=== PATIENT | male | born 1970 | race Caucasian/White ===

== ENCOUNTER 2018-09-28 12:43 | Emergency (ER) | payer BC ==
[~2018-09-28] VITALS: Ht 188 cm; Wt 90.7 kg
[2018-09-28 12:45] VITALS: BP_SYST 123
--- NOTE | 2018-09-28 12:46 | NUR ---
[facility]
--- NOTE | 2018-09-28 12:47 | NUR ---
ER Dr. Valenzuela at bedside examining patient.
--- NOTE | 2018-09-28 12:51 | NUR ---
Pt [id number] presents to ED via BLS c/o 12/13 pain to R shoulder radiating to lower arm and R posterior neck s/[place]. Pt denies KO, but felt nauseated prior to arrival. Numbness and tingling to arm present at time of incident but has since resolved. No other injuries/complaints per pt/noted. Will continue to monitor.
[2018-09-28] MEDS ORDERED: KETOROLAC TROMETHAMINE 60 MG/2 ML VIAL IM ONE (13:00)
--- NOTE | 2018-09-28 13:15 | NUR ---
Radiology at bedside
--- NOTE | 2018-09-28 13:35 | NUR ---
Patient given written and verbal discharge instructions and verbalizes understanding. ER MD Valenzuela discussed with patient the results and treatment provided. Patient in stable condition. ID arm band removed. Rx of Tramadol, Robaxin given. Patient educated on pain management and to follow up with PMD. Pain Scale 5. MD Valenzuela aware. Opportunity for questions provided and answered. Medication side effect fact sheet provided.
[2018-09-28 13:36] VITALS: BP_SYST 137
== END 2018-09-28 13:35 | disposition home or self-care (01) ==
LOC: SED 12:43
DX: S46.811A Strain of other muscles, fascia and tendons at shoulder and upper arm level, right arm, initial encounter (principal); R03.0 Elevated blood-pressure reading, without diagnosis of hypertension; W01.0XXA Fall on same level from slipping, tripping and stumbling without subsequent striking against object, initial encounter; Y93.89 Activity, other specified; Y92.89 Other specified places as the place of occurrence of the external cause; Y99.8 Other external cause status
CPT/HCPCS: 71045; 73030; 96372; 99283; J1885